=== PATIENT | male | born 1970 | race Caucasian/White ===

== ENCOUNTER → 2025-06-03 | Outpatient (CLI) | payer OTHER, SELFPAY ==
--- NOTE | 2025-06-03 16:15 | XR_ITS ---
Examination: Ultrasound soft tissue extremity right shoulder TECHNIQUE: Rodarte scale sonographic images soft tissue right shoulder Date and time: June 03, 2025 1553 hours INDICATIONS: Palpable cyst right shoulder four months FINDINGS: Soft tissue mass with vascularity 2.9 x 0.9 x 2.8 cm isoechoic most consistent with lipoma IMPRESSION: Probable lipoma soft tissue mass at the area of concern, recommend three-month follow-up to document stability of this
== END | disposition home or self-care (01) ==
LOC: CDIM 15:45
PROVIDERS: PCP Physician Assistant Medical; Referring Provider Physician Assistant Medical; Visit Provider Physician Assistant Medical
DX: L72.3 Sebaceous cyst (principal)
CPT/HCPCS: 76882